=== PATIENT | male | born 1960 | race Caucasian/White ===

== ENCOUNTER 2018-08-28 12:18 | Emergency (ER) | payer MEDICAID ==
[~2018-08-28] VITALS: Ht 172.7 cm; Wt 75.0 kg
[2018-08-28] MEDS ORDERED: HYDR-4353 PO (12:58)
[2018-08-28] MEDS ORDERED: ORPH100T2 PO (12:58)
[2018-08-28] MEDS ORDERED: IBUP-1986 PO (12:58)
[2018-08-28] MEDS ORDERED: orphenadrine citrate 60mg/2ml inj. IM ONE (13:00)
[2018-08-28 13:18] VITALS: BP 135/75
== END 2018-08-28 13:23 | disposition home or self-care (01) ==
LOC: ER 12:20 → EDBD 12:20 → ER 13:23
DX: M54.2 Cervicalgia (principal); M54.10 Radiculopathy, site unspecified; G89.29 Other chronic pain; F17.210 Nicotine dependence, cigarettes, uncomplicated; Z79.899 Other long term (current) drug therapy; Z86.73 Personal history of transient ischemic attack (TIA), and cerebral infarction without residual deficits; Z56.0 Unemployment, unspecified
CPT/HCPCS: 96372; 99283; J2360